=== PATIENT | female | born 1980 | race Caucasian/White ===

== ENCOUNTER 2018-08-13 16:31 | Observation (INO) | payer OTHER, SELFPAY ==
[2018-08-13 16:44] VITALS: BP 163/92; PULSE 92; RESP 20; TEMP 36.9; O2SAT 99; BMI 37.0; BMI 37.4
[2018-08-13 17:08] LABS: Basophils % 0.1 % (0.1-2.0); Eosinophils # 0.2 K/mm3 (0.0-0.4); Eosinophils % 2.1 % (0.1-12.0); Hematocrit 33.6 % (37.0-47.0); Hemoglobin 10.7 g/dL (12.2-16.2); Lymphocytes # 1.9 K/mm3 (0.7-4.5); Lymphocytes % 17.7 % (10-50); Mean Corpuscular HGB Conc 31.8 g/dL (31.8-35.4); Mean Corpuscular Hemoglobin 27.2 pg (27.0-31.2); Mean Corpuscular Volume 85.3 fl (81-99); Mean Platelet Volume 9.7 fl (7.4-10.4); Monocytes # 0.5 K/mm3 (0.1-1.0); Monocytes % 4.9 % (1.7-9.3); Neutrophils % 75.2 % (37.0-80.0); Platelet Count 235 K/mm3 (142-424); Red Blood Count 3.94 M/mm3 (4.20-5.40); Red Cell Distribution Width 14.6 % (11.5-17.5); White Blood Count 10.6 K/mm3 (4.8-10.8)
[2018-08-13 17:18] LABS: Alanine Aminotransferase 20 U/L (12-78); Anion Gap 15.7 mEq/L (5-15); Aspartate Amino Transferase 15 U/L (15-37); Blood Urea Nitrogen 6 mg/dL (7-18); Calcium 8.6 mg/dL (8.5-10.1); Carbon Dioxide 21 mmol/L (21.0-32.0); Chloride 105 mmol/L (98-107); Creatinine Clearance Estimated 177 mL/min (50-200); Creatinine,Serum 0.68 mg/dL (0.55-1.02); Estimated Glomerular Filt Rate 98 ml/min (>60); GFR (African American) 118 ML/MIN (>60); Glucose 110 mg/dL (74-106); Potassium 3.7 mmoL/L (3.5-5.1); Sodium 138 mmol/L (136-145); Uric Acid 5.4 mg/dL (2.6-7.2)
[2018-08-13 17:35] LABS: D-Dimer 4470 ng/mL (0-400)
[2018-08-13 17:41] LABS: Activated Partial Thrombo Time 24.2 seconds (23.6-34.0); Fibrinogen 365 mg/dL (204-500); Prothrombin Time 9.4 seconds (9.4-11.8)
[2018-08-14] VITALS (7 sets, daily range): BP systolic 103–133; BP diastolic 56–91; PULSE 78–98; RESP 18; TEMP 36.6–36.9; O2SAT 97–99
--- NOTE | 2018-08-14 10:00 | US_ITS ---
US OB BPP w/Fet-Mat S/D: Indication: Hypertension ITS.REASON: elevated blood pressure ORDERING PHYSICIAN: Lydia Gaviria MD PATIENT AGE: 37 years FINDINGS: The following parameters are obtained: Average ultrasound age is 34 weeks 1 day. Estimated due date by ultrasound is 09/24/2018. Estimated weight is 2407 g which is 82 percentile % BPD: 33 weeks 2 days OFD: 35 weeks 0 days HC: 33 weeks 6 days AC: 35 weeks 0 days FL: 34 weeks 0 days heart rate: 136 bpm. HC/AC: 0.98 Cephalic index: 76% FL/BPD: 80% FL/AC: 21% Amniotic fluid index: 12 cm Qualitative AFV: 2 breathing movements: 2 Gross body movements: 2 Tone: 2 Biophysical profile score: 8/8 Doppler evaluation of the umbilical artery: SD ratio: 72 Resistive index: 3.6 No obvious anomalies evident. Placenta: Posterior and grade 1. Cervix: Appears closed and measures 3 cm IMPRESSION: There is a single live fetus present which is in cephalic presentation with an average ultrasound age of 34 weeks 1 day. Estimated weight is 2407 g which is 82 percentile. Biophysical profile is 8 of 8 with a normal amniotic fluid index. The SD ratio and resistive index are both at the upper limits of normal near the 95th percentile.
--- NOTE | 2018-08-14 12:00 | HMH.DCSUM ---
General - General Admission date:: 08/13/18 Discharge date: 08/14/18 HPI HPI: New transfer 08/14/18 33 wks Elevated BP in severe range and sent to L&D for admission/observation BP range mostly in normal range--low normal--with only occasional elevations in BP. PIH labs were normal and 24 hour urine collection still ongoing. She is scheduled for ultrasound today for growth, GARCÍA, BPP and UA dopplers. Because the majority of her blood pressures are in low normal range, she will not be discharged home on anti-hypertensives. She will monitor BP at home and bring log to appointment in office next week PIH precautions given Hospital Course Hospital Course: per HPI Objective Vital signs: Temp Pulse Resp BP Pulse Ox 98.5 F 98 H 18 103/56 L 97 08/14/18 08:06 08/14/18 09:06 08/14/18 08:06 08/14/18 09:06 08/14/18 08:06 Narrative: CONSTITUTIONAL: no acute distress HEENT: mucous membranes moist PULMONARY: breathing unlabored without audible wheezes CV: no tachycardia or visible JVD; normal LE peripheral pulses ABD: soft, NT/ND, no guarding : deferred SKIN: no visible rash or lesions EXT: 1+ edema LEs NEURO: alert/oriented, no altered mental status PSYCH: appropriate mood and demeanor without visible anxiety/depression Results Labs on day of discharge: Labs from last 24 hours 08/13/18 08/13/18 08/13/18 17:00 17:00 17:00 WBC 10.6 RBC 3.94 L Hgb 10.7 L Hct 33.6 L MCV 85.3 MCH 27.2 MCHC 31.8 RDW 14.6 Plt Count 235 MPV 9.7 Neut % (Auto) 75.2 Lymph % (Auto) 17.7 [place] % (Auto) 4.9 Eos % (Auto) 2.1 Baso % (Auto) 0.1 Neut # (Auto) 8.0 H Lymph # (Auto) 1.9 [place] # (Auto) 0.5 Eos # (Auto) 0.2 Baso # (Auto) 0.0 PT 9.4 INR 0.90 APTT 24.2 Fibrinogen 365 D-Dimer 4470 H* Sodium 138 Potassium 3.7 Chloride 105 Carbon Dioxide 21 Anion Gap 15.7 H BUN 6 L Creatinine 0.68 Estimated Creat Clear 177 Estimated GFR 98 Est GFR ( Amer) 118 Glucose 110 H Uric Acid 5.4 Calcium 8.6 AST 15 ALT 20 DS: Diagnosis - Discharge Diagnosis (1) with 33 completed weeks gestation Status: Acute (2) Chronic hypertension in Status: Acute (3) History of pre-eclampsia in prior , currently Status: Acute (4) AMA (advanced maternal age) multigravida 35+ Status: Acute Discharge Plan - Patient Discharge Instructions ACTIVITY: Continue current activity DIET: regular diet - Follow up Plan Disposition: Home, Self-Snf Medications: Home Medications Medication Instructions Recorded Confirmed Type cetirizine 10 mg tablet 10 mg PO DAILY 08/13/18 08/14/18 History 1 tab PO DAILY 08/13/18 08/14/18 History vitamin,calcium,wtvlkwms-jeug-raywy acid tablet Prescriptions/Medication Reconciliation: Continued vitamin,calcium,iajghfgm-sfob-qkwjr acid tablet 1 tab PO DAILY cetirizine 10 mg tablet 10 mg PO DAILY
--- NOTE | 2018-08-14 12:21 | P.DS_ITS ---
General - General Admission date:: 08/13/18 Discharge date: 08/14/18 HPI HPI: New transfer 08/14/18 33 wks Elevated BP in severe range and sent to L&D for admission/observation BP range mostly in normal range--low normal--with only occasional elevations in BP. PIH labs were normal and 24 hour urine collection still ongoing. She is scheduled for ultrasound today for growth, GARCÍA, BPP and UA dopplers. Because the majority of her blood pressures are in low normal range, she will not be discharged home on anti-hypertensives. She will monitor BP at home and bring log to appointment in office next week PIH precautions given Hospital Course Hospital Course: per HPI Objective Vital signs: Temp Pulse Resp BP Pulse Ox 98.5 F 98 H 18 103/56 L 97 08/14/18 08:06 08/14/18 09:06 08/14/18 08:06 08/14/18 09:06 08/14/18 08:06 Narrative: CONSTITUTIONAL: no acute distress HEENT: mucous membranes moist PULMONARY: breathing unlabored without audible wheezes CV: no tachycardia or visible JVD; normal LE peripheral pulses ABD: soft, NT/ND, no guarding : deferred SKIN: no visible rash or lesions EXT: 1+ edema LEs NEURO: alert/oriented, no altered mental status PSYCH: appropriate mood and demeanor without visible anxiety/depression Results Labs on day of discharge: Labs from last 24 hours 08/13/18 08/13/18 08/13/18 17:00 17:00 17:00 WBC 10.6 RBC 3.94 L Hgb 10.7 L Hct 33.6 L MCV 85.3 MCH 27.2 MCHC 31.8 RDW 14.6 Plt Count 235 MPV 9.7 Neut % (Auto) 75.2 Lymph % (Auto) 17.7 [place] % (Auto) 4.9 Eos % (Auto) 2.1 Baso % (Auto) 0.1 Neut # (Auto) 8.0 H Lymph # (Auto) 1.9 [place] # (Auto) 0.5 Eos # (Auto) 0.2 Baso # (Auto) 0.0 PT 9.4 INR 0.90 APTT 24.2 Fibrinogen 365 D-Dimer 4470 H* Sodium 138 Potassium 3.7 Chloride 105 Carbon Dioxide 21 Anion Gap 15.7 H BUN 6 L Creatinine 0.68 Estimated Creat Clear 177 Estimated GFR 98 Est GFR ( Amer) 118 Glucose 110 H Uric Acid 5.4 Calcium 8.6 AST 15 ALT 20 DS: Diagnosis - Discharge Diagnosis (1) with 33 completed weeks gestation Status: Acute (2) Chronic hypertension in Status: Acute (3) History of pre-eclampsia in prior , currently Status: Acute (4) AMA (advanced maternal age) multigravida 35+ Status: Acute Discharge Plan - Patient Discharge Instructions ACTIVITY: Continue current activity DIET: regular diet - Follow up Plan Disposition: Home, Self-Halfway Medications: Home Medications Medication Instructions Recorded Confirmed Type cetirizine 10 mg tablet 10 mg PO DAILY 08/13/18 08/14/18 History 1 tab PO DAILY 08/13/18 08/14/18 History vitamin,calcium,dzvocqnu-cwbe-qbpxu acid tablet Prescriptions/Medicat
[2018-08-14 18:02] LABS: Total Protein,Urine Random 10.1 mg/dL (0.0-11.9)
[2018-08-14 18:11] LABS: Total Protein 24 Hour,Urine 278 mg/24 hr (40-90); Total Volume,Urine 2750 mL (600-1600)
== END 2018-08-14 16:46 | disposition home or self-care (01) ==
PROVIDERS: Admitting Provider Obstetrics & Gynecology; Visit Provider Obstetrics & Gynecology
DX: O11.3 Pre-existing hypertension with pre-eclampsia, third trimester (principal); O10.913 Unspecified pre-existing hypertension complicating pregnancy, third trimester; Z3A.33 33 weeks gestation of pregnancy; Z37.0 Single live birth; O09.523 Supervision of elderly multigravida, third trimester
CPT/HCPCS: 36415; 59025; 76819; 80048; 84155; 84450; 84460; 84550; 85025; 85378; 85384; 85610; 85730; G0378

== ENCOUNTER → 2018-08-28 14:22 | Outpatient (CLI) | payer OTHER, SELFPAY | PROVIDERS: Visit Provider Obstetrics & Gynecology | DX: Z34.90 Encounter for supervision of normal pregnancy, unspecified, unspecified trimester (principal) | CPT/HCPCS: 86403 ==

== ENCOUNTER 2018-09-07 12:29 | Inpatient (IN) ==
[2018-09-07 13:09] LABS: Microscopic, Urine URINE MICROSCOPIC (MICROSCOPIC)
[2018-09-07 13:10] LABS: Appearance,Urine SL CLOUDY (Clear); Bilirubin,Urine Negative (Negative); Blood, Urine Negative (Negative); Color,Urine YELLOW (Yellow); Glucose,Urine (UA) TRACE (Negative); Ketones,Urine Negative (Negative); Leukocyte Esterase,Urine TRACE (Negative); PH,Urine 6.5 (5.0-8.5); Protein,Urine Negative (Negative); Specific Gravity, Urine 1.015 (1.005-1.030); Urobilinogen,Urine 0.2 EU/dl (0.2)
[2018-09-07 13:18] LABS: Amphetamine/Metha Screen,Urine Negative ng/mL (<1000); Barbiturates Screen,Urine Negative ng/mL (<200); Benzodiazepines Screen,Urine Negative ng/mL (<200); Cannabinoid Screen,Urine Negative ng/mL (<50); Cocaine Screen,Urine Negative ng/mL (<300); Methadone Screen,Urine Negative ng/mL (<300); Opiate Screen,Urine Negative ng/mL (<300); Phencyclidine Screen,Urine Negative ng/mL (<25)
[2018-09-07 13:22] LABS: Bacteria,Urine 3+ /lpf
[2018-09-07 16:24] LABS: Basophils % 0.1 % (0.1-2.0); Eosinophils # 0.3 K/mm3 (0.0-0.4); Eosinophils % 2.3 % (0.1-12.0); Hematocrit 34.9 % (37.0-47.0); Hemoglobin 11.2 g/dL (12.2-16.2); Lymphocytes # 1.7 K/mm3 (0.7-4.5); Lymphocytes % 15.6 % (10-50); Mean Corpuscular Volume 87.6 fl (81-99); Mean Platelet Volume 10.1 fl (7.4-10.4); Monocytes # 0.4 K/mm3 (0.1-1.0); Monocytes % 3.8 % (1.7-9.3); Neutrophils # 8.6 K/mm3 (1.8-7.8); Neutrophils % 78.2 % (37.0-80.0); Platelet Count 226 K/mm3 (142-424); Red Blood Count 3.99 M/mm3 (4.20-5.40); Red Cell Distribution Width 16.4 % (11.5-17.5); White Blood Count 10.9 K/mm3 (4.8-10.8)
--- NOTE | 2018-09-07 16:35 | History & Physical Report ---
*Admission Date: 09/07/18 *Chief complaint: Active labor at 36 3/7 weeks. Previous section. *History of present illness: This 37-year-old 2, para 1, Ab0 white female, a patient of Dr. Churchill (on vacation), arrived in the labor room in active labor having regular contractions. Her bag of water was intact. Her cervix at that time was 1 cm dilated. She was treated with intravenous fluids and Brethine (subcutaneous), but she continued to contract and her cervix changed to 3 cm of dilatation. She had had a previous section for cephalopelvic disproportion (elsewhere). She was scheduled later this week for repeat section and bilateral tubal ligation (per her request). Her only previous surgery was a lumbar discectomy many years ago. She states an allergy to ibuprofen (hivvamshi). Her blood type is O+. Her rubella titer is nonimmune. She plans to breast-feed. Decision is made to proceed to repeat section and bilateral tubal ligation. [facility] History Medical History: Reports:: Hypertension *Have you ever received a pneumonia vaccine?: No *Have you received a flu vaccine this season?: No Other Medical History: Reports: Other Comment:: Lumbar laminectomy Other Surgeries: Yes: Amputation: No Fractures: No - *Social History Educational Level: Completed High School Smoking Status: Former smoker Alcohol Intake: never Substance Use Type: denies use *Occupational Status:: other *Travel in the last 8 weeks: None Family Hx:: Cancer, Hypertension, Thyroid Disorder Para: 1 Meds Home Medications Medication Instructions Recorded Confirmed Type cetirizine 10 mg tablet 10 mg PO DAILY 08/13/18 08/28/18 History 1 tab PO DAILY 08/13/18 08/28/18 History vitamin,calcium,tvpdcppf-ikwi-bifmv acid tablet labetalol 100 mg tablet 100 mg PO BID #60 tab 08/24/18 08/28/18 Rx Allergies Allergy/AdvReac Type Severity Reaction Status Date / Time acetaminophen [From Tylenol] Allergy Mild Verified 09/04/18 10:28 ibuprofen Allergy Mild Verified 09/04/18 10:28 Exam Vital signs and Labs for Last 24 Hours: Temp Pulse Resp BP Pulse Ox 98.2 F 86 18 155/92 H 99 09/07/18 13:14 09/07/18 13:14 09/07/18 13:14 09/07/18 13:14 09/07/18 13:14 Laboratory Results - last 24 hr 09/07/18 12:35: Urine Color Yellow, Urine Appearance Sl cloudy, Urine pH 6.5, Ur Specific [place] 1.015, Urine Protein Negative, Urine Glucose (UA) Trace, Urine Ketones Negative, Urine Blood Negative, Urine Nitrate Negative, Urine Bilirubin Negative, Urine Urobilinogen 0.2, Ur Leukocyte Esterase Trace, Urine WBC 5-10, Ur Squamous Epith Cells 10-20, Urine Bacteria 3+ 09/07/18 12:35: Urine Opiates Screen Negative, Urine Methadone Screen Negative, Ur Barbituates Screen Negative, Ur Phencyclidine Scrn Negative, Ur Amphetamines Screen Negative, U Benzodiazepines Scrn Negative, Urine Cocaine Screen Negative, U Marijuana (THC) Screen Negative 09/07/18 16:10: WBC 10.9 H, RBC 3.99 L, Hgb 11.2 L, Hct 34.9 L, MCV 87.6, MCH 28.0, MCHC 32.0, RDW 16.4, Plt Count 226, MPV 10.1, Neut % (Auto) 78.2, Lymph % (Auto) 15.6, [place] % (Auto) 3.8, Eos % (Auto) 2.3, Baso % (Auto) 0.1, Neut # (Auto) 8.6 H, Lymph # (Auto) 1.7, [place] # (Auto) 0.4, Eos # (Auto) 0.3, Baso # (Auto) 0.0 I & O for Last 24 hours: Intake & Output 09/05/18 09/06/18 09/07/18 09/08/18 11:59 11:59 11:59 11:59 Weight 217 lb - *Routine Abdominal Exam Present: soft, normoactive bowel sounds. Absent: tenderness Comments: Pfannenstiel scar, well-healed. Uterine fundus at 38 cm. heart tones 140/min. - *Routine Exam Comments: Cervix 80%, 3 cm, with the presenting part at -2 station. Bag of water intact.
--- NOTE | 2018-09-07 17:52 | Progress Note ---
[facility] Anesthesia Checklist - Patient Identification Patient Identification: Arm Band, Verbal (Name & ) - Structural Data Admitted From: Inpatient Planned Operative Procedure/s: c section Consent for Planned Operative Procedure(s) Verified: Yes Verified Documents: History and Physical - NPO Status Verified Time NPO: 10:30 - Additional verifications Patient : Yes Anesthesia Reactions: No Hx Blood Transfusions: No Blood Transfusion Reaction: No Cephalosporin Allergy: No Previous Colonoscopy: No - Cardiovascular Assessment Heart Sounds: S1 & S2 Pulse Strength: Baseline Pulse Rhythm: Regular Peripheral Edema: No - Airway Assessment C-Spine Mobility Assessed: Yes TMJ Mobility Assessed: Yes Dentition: Good Dentition - Neurological Assessment Level of Consciousness: Awake, Alert, Appropriate Hx Seizures: No Numbness or tingling in extremities: No - Anesthesia Plan Anesthesia Risk discussed: Yes Anesthesia Plan: Verified ASA Class: II Anesthesia Type: Spinal [facility] History I have reviewed the patient's past medical history: Yes Medical History: Reports:: Hypertension *Have you ever received a pneumonia vaccine?: No *Have you received a flu vaccine this season?: No Other Medical History: Reports: Other Other Surgeries: Yes: Amputation: No Fractures: No - *Social History Educational Level: Completed High School Smoking Status: Former smoker Alcohol Intake: never Substance Use Type: denies use *Occupational Status:: other *Travel in the last 8 weeks: None Family Hx:: Cancer, Hypertension, Thyroid Disorder Para: 1
--- NOTE | 2018-09-07 17:54 | Progress Note ---
[facility] Anesthesia Record Part II Discharge Time: 18:19 Destination: Obstetric PACU nurse assessment reviewed?: Yes Patient Condition:: Good Anesthesia Complications:: None Swallowing reflex intact?: Yes Cyanosis?: No
--- NOTE | 2018-09-07 17:54 | Operative Note ---
Date of procedure: 09/07/18 (This patient of Dr. Gaviria's presented at 36-3/7 weeks in active labor. Attempts at tocolyse this were unsuccessful, and her cervix changed. She had been on labetalol for gestational hypertension. She has had a previous section, and was scheduled for a repeat section and tubal ligation. The decision was made to proceed to that procedure.) Pre-op Diagnosis:: 1. labor, refractory to tocolysis. 2. Previous section. 3. Desire for sterilization. Post-op Diagnosis:: 1. labor, refractory to tocolysis. 2. Previous section. 3. Desire for sterilization. 4. Extensive pelvic adhesions. 5. 8/9, 6 pound 11 ounce, 19 inch male infant, born at 1705. Procedure performed:: 1. Repeat low transverse cervical section. 2. Extensive lysis of adhesions. 3. Bilateral tubal ligation. Surgeon:: Patric Avila MD Alarm Installer(s):: AMBROSE Corbett. BRUSHER MACHINE:: Jerson Hoover Anesthesia: spinal Estimated blood loss (mL): 400 Operative findings:: Extensive pelvic adhesions. Operative note:: After the patient was prepped and draped in usual fashion and spinal anesthesia was administered, a low Pfannenstiel incision was made to the previous incision, and the fat and fascia was in the usual fashion, bleeders being clamped and coagulated along the way. The peritoneum was entered with Metzenbaum scissors and extended above and below. The gravid uterus was encountered. It was encased in dense and filmy adhesions, and was adherent to bowel posteriorly. Initially these were freed up from the lower uterine segment. The bladder peritoneum was sharply and bluntly dissected free, and the bladder was protected with a bladder blade. The uterus was entered in a low transverse fashion with a knife, and the incision was extended bluntly, bilaterally. The amniotic sac was ruptured for clear fluid. The baby was found to be in the LOP position of the vertex and, with appropriate fundal pressure, the head was easily delivered. There was no meconium, nor was there a nuchal cord. The baby's nasal and oropharynx were bulb suctioned, and the baby cried spontaneously on the abdomen, as was delivered. The cord was clamped and cut, 3 vessels were noted to be within the cord, and cord blood was obtained. The cord pH was 7.41. The baby was handed into the arms of the attending manager icu, Dr. Prescott, who assigned Apgars of 8 at 1 minute and 9 at 5 minutes to this 6 pound 11 ounce, 19 inch male infant, born at 1705. The baby was taken to the nursery in excellent condition, along with the father, who had been present in the operating room. The placenta was delivered manually, intact. A ring forceps was used to assure adequate drainage to the cervix; this was then passed off the field, as an unsterile instrument. The uterus was closed in 2 layers, the first a running lock suture of #1 Vicryl as an endometrial layer, followed by a running unlocked suture of #1 Vicryl as a myometrial layer, imbricating over the first. The bladder peritoneum was closed with a running unlocked s uture of 2-0 Vicryl. Blood and clots were then swept from the gutters. Extensive lysis of adhesions was carried out to free up the fundal portion of the uterus and for the most part the posterior aspect of the uterus. Was no undue bleeding. The right tube and ovary were inspected and found to be normal. On the left side, the tube and ovary were buried deeply and adhesions, to the point of being unrecognizable. The fimbria were never actually clearly identified. However, the proximal portion of the left fallopian tube was clearly identified. The midportion of that proximal segment was tented up with a [place] clamp, and the base of that tented a portion was crushed with a Patricia clamp, and ligated with 2-0 Vicryl. The intervening segment was excised with Metzenbaum scissors, and the stumps coagulated with the Bovie. The same process was carried out on the right. Further inspection revealed no undue bleeding. The peritoneum was grasped with 3 Patricia clamps, and closed with a running semi- locked suture of 0 Vicryl. The muscle was approximated with a running unlocked suture of 0 Vicryl. The fascia was closed with a running locked suture of #1 Vicryl. The subcutaneous fat and Fanny's fascia were closed with a running unlocked suture of 2-0 Vicryl. The skin was closed with a subcuticular suture of 3-0 Vicryl, and appropriately dressed. The sponge and needle count was correct. The estimated blood loss was 400 cc. A pelvic examination at the close of the procedure expressed blood and clots from the involuting uterus, with IV Pitocin running. The urine was clear in the Little catheter. The patient tolerated the procedure well, and was taken to PACU in excellent condition. Her blood type is O+. Her rubella titer is non- immune. She plans to breast-feed. Condition: stable Disposition: PACU Specimens:: Bilateral tubal segments. Complications:: None.
--- NOTE | 2018-09-07 17:54 | Progress Note ---
[facility] Anesthesia Record Part I Intake, IV Amount: 1,150 Estimated blood loss (mL): 400 Urine output (mL): 50 Blood Pressure: 112/71 SaO2: 98 Pulse Rate: 80 Respiratory Rate: 20 Temperature: 97.3 F Patient is:: Awake, Stable Stable to PACU at:: 17:59
--- NOTE | 2018-09-08 06:05 | Progress Note ---
Internal Medicine - PN: Subj *Date: 09/08/18 *Time: 06:03 (This is /postop day #1. The patient is afebrile. Her vital signs are stable. Her blood pressure was mildly elevated during the night and she is now on labetalol 100 mg p.o. twice daily with a blood pressure of 122/72. DTRs are normal. Abdomen soft. Lochia normal. Uterine fundus involuting well. Wound clean. I have discussed the extensive adhesions, especially around the left adnexa and informed the patient that we will await the pathology report to confirm that the left tube was in fact interrupted. She is bottlefeeding.) Exam Vital signs and Labs for Last 24 Hours: Temp Pulse Resp BP Pulse Ox 97.3 F L 66 20 125/78 99 09/07/18 18:19 09/07/18 18:19 09/07/18 18:19 09/07/18 18:19 09/07/18 18: Laboratory Results - last 24 hr 09/07/18 12:35: Urine Color Yellow, Urine Appearance Sl cloudy, Urine pH 6.5, Ur Specific [place] 1.015, Urine Protein Negative, Urine Glucose (UA) Trace, Urine Ketones Negative, Urine Blood Negative, Urine Nitrate Negative, Urine Bilirubin Negative, Urine Urobilinogen 0.2, Ur Leukocyte Esterase Trace, Urine WBC 5-10, Ur Squamous Epith Cells 10-20, Urine Bacteria 3+ 09/07/18 12:35: Urine Opiates Screen Negative, Urine Methadone Screen Negative, Ur Barbituates Screen Negative, Ur Phencyclidine Scrn Negative, Ur Amphetamines Screen Negative, U Benzodiazepines Scrn Negative, Urine Cocaine Screen Negative, U Marijuana (THC) Screen Negative 09/07/18 16:10: Blood Type O Positive, Antibody Screen Negative 09/07/18 16:10: WBC 10.9 H, RBC 3.99 L, Hgb 11.2 L, Hct 34.9 L, MCV 87.6, MCH 28.0, MCHC 32.0, RDW 16.4, Plt Count 226, MPV 10.1, Neut % (Auto) 78.2, Lymph % (Auto) 15.6, [place] % (Auto) 3.8, Eos % (Auto) 2.3, Baso % (Auto) 0.1, Neut # (Auto) 8.6 H, Lymph # (Auto) 1.7, [place] # (Auto) 0.4, Eos # (Auto) 0.3, Baso # (Auto) 0.0 09/07/18 16:50: Urine Color Yellow, Urine Appearance Clear, Urine pH 7.0, Ur Specific [place] 1.010, Urine Protein Negative, Urine Glucose (UA) Negative, Urine Ketones Negative, Urine Blood Negative, Urine Nitrate Negative, Urine Bilirubin Negative, Urine Urobilinogen 0.2, Ur Leukocyte Esterase Negative, Urine WBC Occasional, Ur Squamous Epith Cells 5-10, Urine Bacteria Trace I & O for Last 24 hours: Intake & Output 09/05/18 09/06/18 09/07/18 09/08/18 11:59 11:59 11:59 11:59 Intake Total 2240 / 2240 Output Total 850 / 850 Balance 1390 / 1390 Weight 217 lb
--- NOTE | 2018-09-08 07:19 | Pharmacy Consult Notes ---
[facility] Pharmacy VTE Monitoring - Patient Demographics Admission date: 09/07/18 Report Date: 09/08/18 Time: 07:18 Allergies/Adverse Reactions: Patient Allergies acetaminophen [From Tylenol] Allergy (Mild, Verified 09/04/18 10:28) ibuprofen Allergy (Mild, Verified 09/04/18 10:28) Height: 1.63 m Weight: 98.43 kg - VTE Risk Labs: VTE Related Lab Results Hgb 11.2 g/dL (12.2-16.2) L 09/07/18 16:10 Hct 34.9 % (37.0-47.0) L 09/07/18 16:10 Plt Count 226 K/mm3 (142-424) 09/07/18 16:10 - Prophylaxis VTE Prophylaxis Ordered?: Yes Types of VTE Prophylaxis: IPCS Thigh High Location of Applied Device: Bilateral Lower Extremeties - VTE Diagnosis Confirmed Treatment or plan recommended: Continue Current Treatment
[2018-09-08 07:53] LABS: Hematocrit 32.1 % (37.0-47.0)
[2018-09-08 08:04] LABS: Hemoglobin 9.8 g/dL (12.2-16.2)
--- NOTE | 2018-09-08 09:28 | Progress Note ---
Internal Medicine - PN: Subj *Date: 09/08/18 *Time: 09:24 (Because she experienced rather sudden onset of acute edema of her lower extremities, hives of her posterior thighs, and swelling of her face and lips. She is breathing well both nasally and orally. Her lungs are clear to auscultation. Her heart rate is normal. She does have 2+ edema of her lower extremities. Her DTRs are normal. 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 This morning she received 1 mg of Dilaudid and IV Toradol. She ate she was she had already been given 25 mg of Benadryl p.o. and a second dose of 25 mg to follow. Auscultation of her lungs was clear. A stat EKG was read as normal sinus rhythm. Stat chest x-ray has been ordered. I decreased her fluids to 75 cc/hr. I have contacted Dr. Crowder (primary care physician) to evaluate her status. She seems comfortable.) Exam Vital signs and Labs for Last 24 Hours: Temp Pulse Resp BP Pulse Ox 97.3 F L 66 20 125/78 99 09/07/18 18:19 09/07/18 18:19 09/07/18 18:19 09/07/18 18:19 09/07/18 18:19 Laboratory Results - last 24 hr 09/07/18 12:35: Urine Color Yellow, Urine Appearance Sl cloudy, Urine pH 6.5, Ur Specific [place] 1.015, Urine Protein Negative, Urine Glucose (UA) Trace, Urine Ketones Negative, Urine Blood Negative, Urine Nitrate Negative, Urine Bilirubin Negative, Urine Urobilinogen 0.2, Ur Leukocyte Esterase Trace, Urine WBC 5-10, Ur Squamous Epith Cells 10-20, Urine Bacteria 3+ 09/07/18 12:35: Urine Opiates Screen Negative, Urine Methadone Screen Negative, Ur Barbituates Screen Negative, Ur Phencyclidine Scrn Negative, Ur Amphetamines Screen Negative, U Benzodiazepines Scrn Negative, Urine Cocaine Screen Negative, U Marijuana (THC) Screen Negative 09/07/18 16:10: Blood Type O Positive, Antibody Screen Negative 09/07/18 16:10: WBC 10.9 H, RBC 3.99 L, Hgb 11.2 L, Hct 34.9 L, MCV 87.6, MCH 28.0, MCHC 32.0, RDW 16.4, Plt Count 226, MPV 10.1, Neut % (Auto) 78.2, Lymph % (Auto) 15.6, [place] % (Auto) 3.8, Eos % (Auto) 2.3, Baso % (Auto) 0.1, Neut # (Auto) 8.6 H, Lymph # (Auto) 1.7, [place] # (Auto) 0.4, Eos # (Auto) 0.3, Baso # (Auto) 0.0 09/07/18 16:50: Urine Color Yellow, Urine Appearance Clear, Urine pH 7.0, Ur Specific [place] 1.010, Urine Protein Negative, Urine Glucose (UA) Negative, Urine Ketones Negative, Urine Blood Negative, Urine Nitrate Negative, Urine Bilirubin Negative, Urine Urobilinogen 0.2, Ur Leukocyte Esterase Negative, Urine WBC Occasional, Ur Squamous Epith Cells 5-10, Urine Bacteria Trace 09/07/18 17:08: Cord ABG pH 7.41 09/08/18 05:42: Hgb 9.8 L D, Hct 32.1 L I & O for Last 24 hours: Intake & Output 09/05/18 09/06/18 09/07/18 09/08/18 11:59 11:59 11:59 11:59 Intake Total 2240 / 2240 Output Total 850 / 850 Balance 1390 / 1390 Weight 217 lb
--- NOTE | 2018-09-08 11:57 | Progress Note ---
Internal Medicine - PN: Subj *Date: 09/08/18 *Time: 11:54 Interval history: Called by Dr. Avila to see patient with an allergic reaction this morning. Patient has a history of chronic hives and is allergic to Tylenol and Ibuprofen. She was given a dose of Toradol this morning and began to have swelling of her lips and feet. Pt was given 2 dose of Benadryl and a CXR and EKG were ordered. Patient improved after the Benadryl was given and she has no complaints at this time. Exam Vital signs and Labs for Last 24 Hours: Temp Pulse Resp BP Pulse Ox 97.3 F L 66 20 125/78 99 09/07/18 18:19 09/07/18 18:19 09/07/18 18:19 09/07/18 18:19 09/07/18 18:19 Laboratory Results - last 24 hr 09/07/18 12:35: Urine Color Yellow, Urine Appearance Sl cloudy, Urine pH 6.5, Ur Specific [place] 1.015, Urine Protein Negative, Urine Glucose (UA) Trace, Urine Ketones Negative, Urine Blood Negative, Urine Nitrate Negative, Urine Bilirubin Negative, Urine Urobilinogen 0.2, Ur Leukocyte Esterase Trace, Urine WBC 5-10, Ur Squamous Epith Cells 10-20, Urine Bacteria 3+ 09/07/18 12:35: Urine Opiates Screen Negative, Urine Methadone Screen Negative, Ur Barbituates Screen Negative, Ur Phencyclidine Scrn Negative, Ur Amphetamines Screen Negative, U Benzodiazepines Scrn Negative, Urine Cocaine Screen Negative, U Marijuana (THC) Screen Negative 09/07/18 16:10: Blood Type O Positive, Antibody Screen Negative 09/07/18 16:10: WBC 10.9 H, RBC 3.99 L, Hgb 11.2 L, Hct 34.9 L, MCV 87.6, MCH 28.0, MCHC 32.0, RDW 16.4, Plt Count 226, MPV 10.1, Neut % (Auto) 78.2, Lymph % (Auto) 15.6, [place] % (Auto) 3.8, Eos % (Auto) 2.3, Baso % (Auto) 0.1, Neut # (Auto) 8.6 H, Lymph # (Auto) 1.7, [place] # (Auto) 0.4, Eos # (Auto) 0.3, Baso # (Auto) 0.0 09/07/18 16:50: Urine Color Yellow, Urine Appearance Clear, Urine pH 7.0, Ur Specific [place] 1.010, Urine Protein Negative, Urine Glucose (UA) Negative, Urine Ketones Negative, Urine Blood Negative, Urine Nitrate Negative, Urine Bilirubin Negative, Urine Urobilinogen 0.2, Ur Leukocyte Esterase Negative, Urine WBC Occasional, Ur Squamous Epith Cells 5-10, Urine Bacteria Trace 09/07/18 17:08: Cord ABG pH 7.41 09/08/18 05:42: Hgb 9.8 L D, Hct 32.1 L Vital Signs - 24 hr 09/07/18 13:14 09/07/18 17:49 09/07/18 17:53 Temperature 98.2 F 97.3 F L 97.3 F L Pulse Rate 80 Pulse Rate [Right Brachial] 86 79 Respiratory Rate 18 18 20 Blood Pressure 112/71 Blood Pressure [Right Arm] 155/92 H 112/71 02 Sat by Pulse Oximetry 99 99 09/07/18 17:59 09/07/18 18:09 09/07/18 18:19 Temperature 97.3 F L Pulse Rate Pulse Rate [Right Brachial] 82 77 66 Respiratory Rate 18 20 20 Blood Pressure Blood Pressure [Right Arm] 130/84 132/84 125/78 02 Sat by Pulse Oximetry 100 100 99 I & O for Last 24 hours: Intake & Output 09/05/18 09/06/18 09/07/18 09/08/18 23:59 23:59 23:59 23:59 Intake Total 1250 / 1250 990 / 990 Output Total 100 / 100 750 / 750 Balance 1150 / 1150 240 / 240 Weight 217 lb - Constitutional no acute distress (conversant) - *Routine HEENT Exam Head: Present: normocephalic Eye: Present: EOMI, PERRL ENT: Present: mucous membranes moist - *Routine Neck Exam Present: supple. Absent: lymphadenopathy - *Routine Respiratory Exam Present: CTA bilaterally - *Routine Cardiovascular Exam Present: RRR - *Routine Extremities Exam Present: edema (in both legs). Absent: cyanosis, clubbing - *Routine Skin Exam Present: warm. Absent: rash - *Routine Neurological Exam Present: alert, oriented X3 Assessment and Plan (1) Allergic reaction caused by a drug Current visit: Yes Status: Acute Category: Medical Code(s): T78.40XA - Allergy, unspecified, initial encounter (2) Chronic urticaria Current visit: Yes Status: Acute Category: Medical Code(s): L50.8 - Other urticaria - Assessment and plan all Dx Assessment and Plan for all problems:: Patient is post op day #1, s/p repeat . Her allergic reaction has resolved with treatment provided. Agree with Benadryl as needed and stopping all NSAID's. Recommend Oxycodone as needed for moderate to severe pain. Please call with any new issues.
[2018-09-08 20:32] VITALS: BP 118/82
--- NOTE | 2018-09-09 08:13 | Progress Note ---
Internal Medicine - PN: Subj *Date: 09/09/18 *Time: 08:12 (This is /postoperative day #2. The patient is afebrile. Her vital signs are stable. Her blood pressure is 110/72 on labetalol 100 mg p.o. twice daily. DTRs are normal. Wound clean. Abdomen soft. Lochia normal. Uterine fundus involuting well. She has had no further problems with hives. The baby is doing well. Impression: Stable.) Exam Vital signs and Labs for Last 24 Hours: Temp Pulse Resp BP Pulse Ox 99.0 F 96 H 18 118/82 95 09/08/18 20:00 09/08/18 20:00 09/08/18 20:00 09/08/18 20:00 09/08/18 20:00 I & O for Last 24 hours: Intake & Output 09/06/18 09/07/18 09/08/18 09/09/18 11:59 11:59 11:59 11:59 Intake Total 2240 / 2240 Output Total 850 / 850 Balance 1390 / 1390 Weight 217 lb Microbiology Reports for the Last 24 Hours: Microbiology 09/07/18 12:35 Urine,Clean Catch Urine Culture - Final Multiple organisms, suggests contamination. Assessment and Plan (1) Allergic reaction caused by a drug Current visit: Yes Status: Acute Category: Medical Code(s): T78.40XA - Allergy, unspecified, initial encounter (2) Chronic urticaria Current visit: Yes Status: Acute Category: Medical Code(s): L50.8 - Other urticaria
--- NOTE | 2018-09-10 09:05 | Progress Note ---
Internal Medicine - PN: Subj *Date: 09/10/18 *Time: 09:02 (This is /postoperative day #3. The patient is afebrile. Her vital signs are stable. Her blood pressure is 132/81 on labetalol 100 mg p.o. twice daily. The baby is doing well. The patient's uterine fundus is involuting well. Her wound is clean. Her abdomen is soft. She is eating and ambulating, and has had a bowel movement. She will be discharged later today on labetalol 100 mg p.o. twice daily (#40), and on Tylenol and Motrin, as needed for pain. She will also be given a prescription for Dilaudid 2 mg (#12), 1 p.o. every 6 hours as needed for intermittent severe pain. She will follow-up with in 2 weeks.) Exam Vital signs and Labs for Last 24 Hours: Temp Pulse Resp BP Pulse Ox 99.0 F 96 H 18 118/82 95 09/08/18 20:00 09/08/18 20:00 09/08/18 20:00 09/08/18 20:00 09/08/18 20:00 I & O for Last 24 hours: Intake & Output 09/07/18 09/08/18 09/09/18 09/10/18 11:59 11:59 11:59 11:59 Intake Total 2240 / 2240 Output Total 850 / 850 Balance 1390 / 1390 Weight 217 lb Microbiology Reports for the Last 24 Hours: Microbiology 09/07/18 12:35 Urine,Clean Catch Urine Culture - Final Multiple organisms, suggests contamination. Assessment and Plan (1) Allergic reaction caused by a drug Current visit: Yes Status: Acute Category: Medical Code(s): T78.40XA - Allergy, unspecified, initial encounter (2) Chronic urticaria Current visit: Yes Status: Acute Category: Medical Code(s): L50.8 - Other urticaria
--- NOTE | 2018-09-10 09:11 | Discharge Summary ---
General - General Admission date:: 09/07/18 Discharge date: 09/10/18 (This 37-year-old 2, now para 2, Ab0 white female was admitted at 36-3/7 weeks in active labor and failed tocolysis. She has been scheduled for a repeat section and bilateral tubal ligation. On the date of admission she was taken to the operating room, where she underwent a repeat low transverse cervical section under spinal anesthesia, without complications. The baby was an 8/9, 6 pound 11 ounce, 19 inch male infant, who is bottlefeeding, has been circumcised, and is done well. At surgery extensive adhesions were encountered. The patient stated that with her first section she had a postoperative infection which likely contributed to these adhesions. The right tube was easily identified and ligated, the left tube was less easily identified, but a proximal segment was able to be excised. Pathology is pending and the patient is aware of that issue. Postoperatively, the patient is done well with the exception of the fact that she developed hives from various pain medications. She stated that she was allergic to Tylenol and ibuprofen, and that her hives had been an issue for her in the past. She was treated with Benadryl and ultimately did well when she was given Dilaudid. Any other attempted pain medication halted in urticaria. At this point she is eating and ambulating and has had a bowel movement. She is bottlefeeding. Her abdomen is soft. Her uterine fundus has involuted well. Her wound is clean. Her lochia is normal. She had been on labetalol, but only 50 mg p.o.twice daily, and her blood pressure was elevated postoperatively. She is currently on labetalol 100 mg p.o. twice daily, and her blood pressure is stable at 132/81. DTRs are normal. She is discharged home on the third postoperative/ day on iron and vitamins (hemoglobin 9.8 g, but clinically stable), on labetalol 100 mg p.o. twice daily (#40), and on Dilaudid 2 mg p.o. every 6 hours as needed severe pain (#12). She is given appropriate instructions as to diet, exercise, and wound care, and she is to follow-up with Dr. Gaviria in 2 weeks. Her blood type is O+. Her rubella titer is nonimmune, and she will receive a vaccine prior to discharge.) HPI HPI: This 37-year-old 2, para 1, Ab0 white female, a patient of Dr. Churchill (on vacation), arrived in the labor room in active labor having regular contractions. Her bag of water was intact. Her cervix at that time was 1 cm dilated. She was treated with intravenous fluids and Brethine (subcutaneous), but she continued to contract and her cervix changed to 3 cm of dilatation. She had had a previous section for cephalopelvic disproportion (elsewhere). She was scheduled later this week for repeat section and bilateral tubal ligation (per her request). Her only previous surgery was a lumbar discectomy many years ago. She states an allergy to ibuprofen (hives). Her blood type is O+. Her rubella titer is nonimmune. She plans to breast-feed. Decision is made to proceed to repeat section and bilateral tubal ligation. Hospital Course Rhogam Administration: Not Indicated Objective Vital signs: Temp Pulse Resp BP Pulse Ox 99.0 F 96 H 18 118/82 95 09/08/18 20:00 09/08/18 20:00 09/08/18 20:00 09/08/18 20:00 09/08/18 20:00 DS: Diagnosis - Discharge Diagnosis (1) Allergic reaction caused by a drug Status: Acute (2) Chronic urticaria Status: Acute Discharge Plan - Patient Discharge Instructions - Follow up Plan Home Medications: Home Medications Medication Instructions Recorded Confirmed Type cetirizine 10 mg tablet 10 mg PO DAILY 08/13/18 09/08/18 History 1 tab PO DAILY 08/13/18 09/08/18 History vitamin,calcium,[id number] acid tablet Labetalol HCl 100 mg PO BID 09/08/18 09/08/18 History Prescriptions/Medication Reconciliation: No Action vitamin,calcium,wruigmck-[id number] acid tablet 1 tab PO DAILY cetirizine 10 mg tablet 10 mg PO DAILY Labetalol HCl 100 mg PO BID
== END 2018-09-10 12:10 | disposition home or self-care (01) | DRG 785 ==
LOC: OBOUT 12:29 → OB 12:31
PROVIDERS: ADMIT Obstetrics & Gynecology; ATTEND Obstetrics & Gynecology
CPT/HCPCS: J2405